=== PATIENT | female | born 1990 | race African-American/Black ===

== ENCOUNTER 2018-06-16 04:14 | Emergency (ER) | payer OTHER ==
[~2018-06-16] VITALS: Ht 162.6 cm; Wt 54.4 kg
[2018-06-16 04:15] VITALS: BP 138/60
--- NOTE | 2018-06-16 04:24 | NUR ---
ED Nurse Note: Patient KIM RA 67 from home c/o lower abdominal pain, heavy vaginal bleeding (10 pads), and vomiting since 2100 last night. Patient was at [facility] for a miscarriage on Sunday. Patient was 11 weeks . AO4. NAD. VSS. Family at bedside.
--- NOTE | 2018-06-16 04:36 | Emergency Room Report ---
History of Present Illness General Chief Complaint: Complications Source: Patient Present Illness HPI Is a 28-year-old female 1, para 0, 11 weeks . She presents with chief point of vaginal bleeding and cramping. She has some spotting was seen at [facility] 2 days ago. She was told that she had a miscarriage. Said that her hCG level was very low. She did not know what the ultrasound showed but was told that she had a miscarriage. He does not remember if there was demise. She was told to follow-up with her [employer]. She has an appointment 11 days from now. Tonight she started having more cramping and vaginal bleeding. Passing clots. Pain is sharp and crampy. 8 out of 10. Nothing made it better. Nothing made it worse. Denies any other complaint. No trauma. Allergies: Coded Allergies: No Known Allergies (Unverified , 06/16/18) Patient History Past Medical History: see triage record, old chart reviewed Past Surgical History: none Pertinent Family History: none Social History: Denies: smoking Last Menstrual Period: 03/23/2018 Now: No - miscarriage at 11 weeks on 06/14/2018 : 1 Para: 0 Immunizations: other Reviewed Nursing Documentation: PMH: Agreed; PSxH: Agreed Nursing Documentation-PMH Past Medical History: No Stated History Review of Systems Eye: Denies: eye pain, blurred vision ENT: Denies: ear pain, nose congestion, throat swelling Respiratory: Denies: cough, shortness of breath Cardiovascular: Denies: chest pain, palpitations Gastrointestinal: Denies: abdominal pain, diarrhea, nausea, vomiting Genitourinary: Reports: vag bleed/dc Musculoskeletal: Denies: back pain, joint pain Skin: Denies: rash Neurological: Denies: headache, numbness Endocrine: Denies: increased thirst, increased urine Hematologic/Lymphatic: Denies: easy bruising All Other Systems: negative except mentioned in HPI Physical Exam Vital Signs Date Time Temp Pulse Resp B/P (MAP) Pulse Ox O2 Delivery O2 Flow Rate FiO2 06/16/18 04:14 97.3 80 16 138/60 100 Room Air vitals normal Sp02 EP Interpretation: reviewed, normal General Appearance: well appearing, no apparent distress, alert Head: normocephalic, atraumatic Eyes: bilateral eye PERRL, bilateral eye EOMI ENT: hearing grossly normal, normal pharynx Neck: full range of motion, supple, no meningismus Respiratory: chest non-tender, lungs clear, normal breath sounds Cardiovascular #1: regular rate, rhythm, no murmur Gastrointestinal: normal bowel sounds, non tender, no mass, no organomegaly, no bruit, non-distended Genitourinary: other - Pelvic exam done with female nurses hair mixer. External exam normal. Internal exam show clots. There was amniotic fluid sac at the os. I remove this without any difficulty. There were tissues at the os. I removed this in the os start closing up. Uterus not enlarged. Musculoskeletal: back normal, gait/station normal, normal range of motion Neurologic: alert, oriented x3 Psychiatric: mood/affect normal Skin: warm/dry Medical Decision Making Diagnostic Impression: Primary Impression: Complete Additional Impression: Vasovagal syncope ER Course Patient presents with spontaneous . Bleeding significantly improve after removing tissue. Prior to this she was vomiting and lean over the stretcher. She had a syncopal episode and hit her face. There was small abrasion to the bridge and nose and the upper lip. Nothing to be sutured. Patient had a completed spontaneous here. She had a vasovagal syncopal episode with minor head injury. Mechanism is mild. I see no need for CT head. She felt better now after IV fluid and evacuation of tissue from the os. Bleeding slowed down significantly. Lab Results Impression labs unremarkable Last Vital Signs Date Time Temp Pulse Resp B/P (MAP) Pulse Ox O2 Delivery O2 Flow Rate FiO2 06/16/18 04:14 97.3 80 16 138/60 100 Room Air Status: improved Disposition: HOME, SELF-CARE Condition: Stable Scripts Ibuprofen* (MOTRIN*) 600 Mg Tablet 600 MG ORAL THREE TIMES A DAY, #30 TAB 0 Refills Prov: Ortega Baxter MD 06/16/18 Additional Instructions: Increase fluid. Take Motrin every 6 hours for the next few days. Follow-up with your doctor within a week. Return for worsening symptom or increasing bleeding or fever. Ortega Baxter MD Jun 16, 2018 04:35
[2018-06-16] MEDS ORDERED: Ketorolac 30mg Inj IV ONE (04:45)
--- NOTE | 2018-06-16 04:50 | NUR ---
ED Nurse Note: Blood collected; sent down to lab
[2018-06-16 05:20] VITALS: BP 91/57
--- NOTE | 2018-06-16 05:20 | NUR ---
ED Nurse Note: Received patient from ZHANG Drummond. Mild abrasion on nose and upper lip noted. Assisted ERMD at bedside for pelvic exam in OB room. Transferred patient back to monitored bed. AO4. NAD. Blood pressure 91/57. Family at bedside. Bed at lowest position; side rails raised. Will continue to monitor.
[2018-06-16 05:27] LABS: BASOPHILS % (AUTO) 0.7 % (0.0-2.0); EOSINOPHILS % (AUTO) 1.1 % (0.0-3.0); HEMATOCRIT 35.4 % (37.0-47.0); HEMOGLOBIN 11.6 G/DL (12.0-16.0); LYMPHOCYTES % (AUTO) 12.1 % (20.0-45.0); MEAN CORPUSCULAR VOLUME 96 FL (80-99); MONOCYTES % (AUTO) 4.4 % (1.0-10.0); NEUTROPHILS % (AUTO) 81.8 % (45.0-75.0); PLATELET COUNT 199 K/UL (150-450); RED BLOOD COUNT 3.67 M/UL (4.20-5.40); WHITE BLOOD COUNT 15.4 K/UL (4.8-10.8)
[2018-06-16 05:34] LABS: ANION GAP 13 mmol/L (5-15); BLOOD UREA NITROGEN 6 mg/dL (7-18); CALCIUM 8.6 MG/DL (8.5-10.1); CARBON DIOXIDE 23 MMOL/L (21-32); CHLORIDE 101 MMOL/L (98-107); CREATININE 0.7 MG/DL (0.55-1.30); POTASSIUM 3.3 MMOL/L (3.5-5.1); SODIUM 137 MMOL/L (136-145)
[2018-06-16 06:00] VITALS: BP 104/59
[2018-06-16] MEDS ORDERED: Acetaminophen 500mg (ES) tab ORAL ONE (06:30)
[2018-06-16] MEDS ORDERED: IBUPROFEN600 MG ORAL (06:35)
--- NOTE | 2018-06-16 06:48 | NUR ---
ED Nurse Note: Ambulated patient around unit. pt able to ambulate steady. Denies nausea or dizziness.
[2018-06-16 06:50] VITALS: BP 103/61
--- NOTE | 2018-06-16 06:50 | NUR ---
ED Nurse Note: Patient cleared for discharge per ERMD. AO4 NAD. VSS. Accompanied by family member. Patient given prescriptions and discharge instructions; verbalized understanding. IV & ID band removed. Patient ambulated steady with all personal belongings.
[2018-06-16] MEDS ORDERED: NKM (07:21)
== END 2018-06-16 06:50 | disposition home or self-care (01) ==
LOC: EDBD 04:14 → EMR 04:44
DX: O03.9 Complete or unspecified spontaneous abortion without complication (principal); R55 Syncope and collapse
CPT/HCPCS: 36415; 80048; 84702; 85025; 96361; 96374; 96375; 99284; J1885; J2405

== ENCOUNTER 2018-06-16 07:09 | Inpatient (IN) | payer OTHER ==
[~2018-06-16] VITALS: Ht 162.6 cm; Wt 54.4 kg
[2018-06-16] VITALS (7 sets, daily range): BP systolic 88–105; BP diastolic 45–56
[~2018-06-16 07:09] MED LIST: IBUPROFEN600 MG ORAL
[2018-06-16] MEDS ORDERED: NKM (07:21)
--- NOTE | 2018-06-16 07:26 | NUR ---
ED Nurse Note: pt. was recently discharged from ER, came back due to feeling weak. Denies feeling dizzy. denies pain. Pt was attached to cardiac rehabilitation program director and was gievn juice. at the bedside
--- NOTE | 2018-06-16 07:43 | Emergency Room Report ---
History of Present Illness General Chief Complaint: Generalized Weakness Source: Patient, Significant Other Present Illness HPI Patient had been dispositioned and in the route to the waiting room and going to the car patient reported feeling lightheaded Near syncopal feelings And was brought back to the emergency room Previously patient did have a syncopal episode however not with this presentation Patient feels generally weak denies any focal weakness denies any chest pain or shortness of breath Patient appears to have had a completion of her miscarriage from previous report Denies any abdominal pain at this time Allergies: Coded Allergies: No Known Allergies (Unverified , 06/16/18) Patient History Past Medical History: see triage record Pertinent Family History: none Now: No Reviewed Nursing Documentation: PMH: Agreed; PSxH: Agreed Nursing Documentation-PMH Past Medical History: No History, Except For Review of Systems All Other Systems: negative except mentioned in HPI Physical Exam Vital Signs Date Time Temp Pulse Resp B/P (MAP) Pulse Ox O2 Delivery O2 Flow Rate FiO2 06/16/18 07:10 95 14 Room Air 06/16/18 07:10 97.9 88/55 100 Sp02 EP Interpretation: reviewed, normal General Appearance: well appearing, no apparent distress Head: normocephalic, atraumatic Eyes: bilateral eye PERRL, bilateral eye EOMI ENT: hearing grossly normal, normal pharynx, TMs + canals normal, uvula midline Neck: full range of motion, supple, no meningismus, no bony tend Respiratory: lungs clear, normal breath sounds, no rhonchi, no respiratory distress, no retraction, no accessory muscle use Cardiovascular #1: normal peripheral pulses, regular rate, rhythm, no edema, no gallop, no JVD, no murmur Gastrointestinal: normal bowel sounds, non tender, soft, no mass, no organomegaly, non-distended, no guarding, no hernia, no pulsatile mass, no rebound Genitourinary: no CVA tenderness Musculoskeletal: normal inspection Neurologic: oriented x3, responsive, grocery worker III-XII nml as tested, motor strength/ tone normal, sensory intact Psychiatric: mood/affect normal Skin: other - Mild pallor Lymphatic: normal inspection, no adenopathy Procedures Critical Care Time Critical Care Time 40 minutes for multiple re-evaluations, several episodes of lightheadedness and possible loss of consciousness, continued to be evaluations discussion with specialist not including any procedural time Medical Decision Making Diagnostic Impression: Primary Impression: Complete miscarriage Additional Impressions: Near syncope Vaginal bleeding Symptomatic anemia ER Course Given the patient's recent presentation and the events that occurred ultrasound was obtained repeat blood work patient's hemoglobin is somewhat lower There is some delusional consideration with this Patient was taken to ultrasound and was reported to have another near syncopal episode while she was going to the restroom Currently the patient continues to do significantly better However given the repeat presentation and the near syncopal episodes that have occurred Case was discussed with gynecology and patient admitted for further care Labs Test 06/16/18 07:36 06/16/18 09:47 White Blood Count 16.5 K/UL (4.8-10.8) Red Blood Count 2.73 M/UL (4.20-5.40) Hemoglobin 8.9 G/DL (12.0-16.0) Hematocrit 26.7 % (37.0-47.0) Mean Corpuscular Volume 98 FL (80-99) Mean Corpuscular Hemoglobin 32.6 PG (27.0-31.0) Mean Corpuscular Hemoglobin Concent 33.4 G/DL (32.0-36.0) Red Cell Distribution Width 12.1 % (11.6-14.8) Platelet Count 167 K/UL (150-450) Mean Platelet Volume 7.2 FL (6.5-10.1) Neutrophils (%) (Auto) % (45.0-75.0) Lymphocytes (%) (Auto) % (20.0-45.0) Monocytes (%) (Auto) % (1.0-10.0) Eosinophils (%) (Auto) % (0.0-3.0) Basophils (%) (Auto) % (0.0-2.0) Differential Total Cells Counted 100 Neutrophils % (Manual) 96 % (45-75) Lymphocytes % (Manual) 3 % (20-45) Monocytes % (Manual) 1 % (1-10) Eosinophils % (Manual) 0 % (0-3) Basophils % (Manual) 0 % (0-2) Band Neutrophils 0 % (0-8) Platelet Estimate Adequate Platelet Morphology Normal Hypochromasia 1+ Urine Color Pale yellow Urine Appearance Clear Urine pH 7 (4.5-8.0) Urine Specific [place] 1.005 (1.005-1.035) Urine Protein Negative (NEGATIVE) Urine Glucose (UA) Negative (NEGATIVE) Urine Ketones Negative (NEGATIVE) Urine Blood Negative (NEGATIVE) Urine Nitrite Negative (NEGATIVE) Urine Bilirubin Negative (NEGATIVE) Urine Urobilinogen Normal MG/DL (0.0-1.0) Urine Leukocyte Esterase Negative (NEGATIVE) Rhythm Strip Diag. Results EP Interpretation: yes Rate: 70 Rhythm: NSR, no PVC's, no ectopy CT/MRI/US Diagnostic Results CT/MRI/US Diagnostic Results : Impression pelvic ultrasound:IMPRESSION: There is trace fluid in the endometrium. An ill-defined hypoechoic area adjacent to the endometrium. No vascularity to suggest RPOC. Last Vital Signs Date Time Temp Pulse Resp B/P (MAP) Pulse Ox O2 Delivery O2 Flow Rate FiO2 06/16/18 07:10 97.9 95 14 88/55 100 Room Air Status: improved Disposition: ADMITTED INPATIENT Condition: Serious Referrals: NON PHYSICIAN (PCP) Cisco Baez DO Jun 16, 2018 07:43
[2018-06-16 07:53] LABS: HEMATOCRIT 26.7 % (37.0-47.0); HEMOGLOBIN 8.9 G/DL (12.0-16.0); MEAN CORPUSCULAR VOLUME 98 FL (80-99); PLATELET COUNT 167 K/UL (150-450); RED BLOOD COUNT 2.73 M/UL (4.20-5.40); RED CELL DISTRIBUTION WIDTH 12.1 % (11.6-14.8); WHITE BLOOD COUNT 16.5 K/UL (4.8-10.8)
--- NOTE | 2018-06-16 08:05 | NUR ---
ED Nurse Note: pt taken to US
--- NOTE | 2018-06-16 08:30 | NUR ---
ED Nurse Note: COLOR SPRAYER was called in US. Went down to assess the pt. Upon arriving COLOR SPRAYER was there. Pt. was verbally responsive and oriented. Pt. stated she feels weak. Asked RT to check the O2 sat. 100% RA
--- NOTE | 2018-06-16 08:44 | NUR ---
ED Nurse Note: Pt. came back from US
--- NOTE | 2018-06-16 08:58 | NUR ---
ED Nurse Note: received report from ZHANG Bagley and assumed care, pt came back from ultrasound, on cardiac nurse specialist, pt resting in bed comfortably, vss, NSR, pt currently denies nausea or any pain. Pt spouse member at the bedside, will cont monitor. pt advised to notify staff if needed assist.
--- NOTE | 2018-06-16 09:15 | Diagnostic Imaging Report ---
EXAM: US Pelvis Complete, Transabdominal CLINICAL HISTORY: Miscarriage 3 days ago TECHNIQUE: Real-time transabdominal pelvic ultrasound (complete) with image documentation. COMPARISON: No relevant prior studies available. FINDINGS: Uterus/cervix: Uterus measures 7.5 x 4.1 x 4.3 cm. Endometrial stripe thickness within normal limits. There is trace fluid in the endometrium. An ill-defined hypoechoic area adjacent to the endometrium. No vascularity to suggest RPOC. Right ovary: Right ovary measures 2.3 x 3.0 x 1.0 cm. Normal blood flow. Left ovary: Left ovary measures 1.6 x 1.7 x 1.2 cm. Normal blood flow. Free fluid: No free fluid. Bladder: Unremarkable as visualized. Wall is normal thickness for degree of distention. IMPRESSION: There is trace fluid in the endometrium. An ill-defined hypoechoic area adjacent to the endometrium. No vascularity to suggest RPOC.
--- NOTE | 2018-06-16 09:45 | NUR ---
ED Nurse Note: urine specimen sent.
[2018-06-16 10:06] LABS: APPEARANCE,URINE CLEAR; BILIRUBIN, URINE NEGATIVE (NEGATIVE); COLOR,URINE PALE YELLOW; GLUCOSE, URINE (UA) NEGATIVE (NEGATIVE); KETONES,URINE NEGATIVE (NEGATIVE); LEUKOCYTE ESTERASE ,URINE NEGATIVE (NEGATIVE); NITRITE,URINE NEGATIVE (NEGATIVE); PH,URINE 7 (4.5-8.0); PROTEIN,URINE NEGATIVE (NEGATIVE); UROBILINOGEN,URINE NORMAL MG/DL (0.0-1.0)
--- NOTE | 2018-06-16 10:10 | NUR ---
ED Nurse Note: pt assisted using bedpan and cleaned with minimal assist.
--- NOTE | 2018-06-16 11:21 | NUR ---
ED Nurse Note: report given to ZHANG Peck from [facility].
--- NOTE | 2018-06-16 12:35 | NUR ---
ED Nurse Note: pt transferred to [facility], all belongings sent, pt transfer with RN x2, vss,r michael even and unlabored, airway intact, no changes in neuro status. spouse member at bedside.
--- NOTE | 2018-06-16 13:00 | NUR ---
NURSE NOTES: RECEIVED PHONE REPORT FROM MARGARETH MART RN OF ED DPT.PT IS 28 YRS OLD WITH DX OF MISCAARIAGE,NEAR SYNCOPE.PT AWAKE ALERT AND ORIENTED X4 AND AT BED SIDE AT ALL THE TIME. AWAITING FOR PT CAME TO THE UNIT.
--- NOTE | 2018-06-16 13:04 | NUR ---
PT ARRIVED TO THE UNIT ESCORTED BY BRITTNY HOLCOMB FROM ED DPT.PT AWAKE AND ORIENTED X4 DENIES ABD PAIN OR ANY DISCOMFORT AT THIS TIME.HR 72 ,NSR NOTED ON MS SQL DEVELOPER.FULL BODY ASSESSMENT COMPLETED,NO EVIDENCE OF VAGINAL BLEEDING NOTED AT THIS TIME.H.L ON RT HAND G# 20 INFILTRATED.NO MEDICAL HX .PT AT BED SIDE SEEMS VERY SUPPORTIVE.PLACED A TELEPHONE CALL TO AUDREY BOATENG AND MADE AWARE AND NOTIFIED REGARDING NEW ADMISSION,ENDORSED LAB,S,V/S AND ABD U.S REPORT . STATING THAT IS ON HIS WAY TO SEE THE PT.M.D CAME TO SEE THE PATIENT.NO ACUTE DISTRESS NOTED AT THIS TIME.WILL CONT TO MONITOR.
--- NOTE | 2018-06-16 13:36 | NUR ---
ED Nurse Note: d/c assessment done at 1235.
--- NOTE | 2018-06-16 16:00 | NUR ---
NURSE NOTES:PT ENCOURAGED TO EAT AND DRINK PLENTY FLUIDS 2000ML IN 6 HRS ,ALSO TO GET OUT OFF BED VERY SLOWLY TO PREVENT DIZZINESS AND HYPOTENSION,PT VERBALIZED UNDERSTOOD.ASSISTED PT TO USE BED SIDE COMMODE ,WHEN HR INCREASE TO 140,S PT DENIES CP.PT VOIDING LARGE AMOUNT OF CLEAR URINE COLOR,NO EVIDENCE OF VAGINAL BLEEDING.PT ASSISTED TO BED AND MADE COMFORTABLE POSSIBLE.WILL CONT TO MONITOR.
--- NOTE | 2018-06-16 18:00 | NUR ---
NURSE NOTES: WHEN PT IS USSING BED SIDE COMMODE HR INCREASED TO 165,PT STATING OF FILING LIKE PALPITATION BUT NO CHEST PAIN.PLACED A TELEPHONE CALL TO DR MANZANO AND MADE AWARE AND NOTIFIED REGARDING PT HR INCREASE TO 150,S TO 165 .Gay SPOKE WITH PT IN THE PHONE AND EXPLAINED TO HER THAT WILL STAYED IN THE HOSPITAL TONIGHT.PT AGREE TO STAY WELL HER .WILL CONT TO MONITOR.
--- NOTE | 2018-06-16 19:40 | NUR ---
NURSE NOTES: Received Pt is resting on the bed and awake and alert. Family; stay at bedside. On tele monitor with SR and HR: 84's. On room air and no respiratory distress noted. IV site intact and no sign of infiltration noted. Encouraged oral hydration. Placed fall precaution. Will continue to care plan. Pt will transfer to Tele and awaiting room. Informed to Pt and family and verbally understanding.
--- NOTE | 2018-06-16 19:40 | NUR ---
HAND-OFF: Report given to .ALYCE HOLCOMB.
--- NOTE | 2018-06-16 20:30 | NUR ---
TRANSFER TO FLOOR: Patient transferred to Tele room 202-2. Report given to ZHANG Julien. Belongings given to ZHANG Julien. Pt is awake and alert. No sign of acute distress noted. IV site intact and no sign of infiltration noted.
--- NOTE | 2018-06-16 20:45 | NUR ---
NURSE NOTES: RECEIVED PATIENT FROM [facility]. PATIENT ALERT AND ORIENTED X4, SR ON A MONITOR, DENIES PAIN AT THIS TIME. NO ACUTE VAGINAL BLEEDING NOTED, JUST LIGHT SPOTTING ON SANITARY PAD. ENCOURAGED TO DRINK A LOT OF FLUIDS. INSTRUCTED PATIENT TO CALL FOR ASSISTANCE AND NOT TO GET OUT OF BED WITHOUT HELP. PATIENT AND VERBALIZED UNDERSTANDING. BEDSIDE TABLE, COMMODE AND CALL LIGHT WITHIN REACH, BED IN LOW POSITION.
[2018-06-17] VITALS: BP 93/50
[2018-06-17 04:00] VITALS: BP 113/54
--- NOTE | 2018-06-17 07:12 | NUR ---
HAND-OFF: Report given to Sandy GARCÍA RN. PATIENT RESTING IN BED, NO SIGNS OF DISTRESS NOTED. AT BEDSIDE.
[2018-06-17 08:00] VITALS: BP 120/54
--- NOTE | 2018-06-17 08:06 | NUR ---
NURSE NOTES: received patient report from anuj pfeiffer. patient is on bed awake. no acute distress noted. AOX4. SR on the monitor. bed is low and locked. patient is noted to be ambulatory steady. will continue plan of care.
[2018-06-17 12:00] VITALS: BP 98/46
--- NOTE | 2018-06-17 12:34 | NUR ---
NURSE NOTES: attempted to downgrade patient to MS but per dr gibbs, keep the patient in tele because of HR 138.patient is stable, asymptomatic.
--- NOTE | 2018-06-19 13:56 | Discharge Summary ---
Discharge Summary Discharge Summary _ DATE OF ADMISSION:06/16/18 DATE OF DISCHARGE: 06/17/18 DISCHARGED BY: Dr. Saez REASON FOR ADMISSION: 28 years old female , 1, para 0, 11 weeks , presented with complaint of vaginal bleeding and cramping. Patient had some vaginal spotting and was seen at [facility] days ago. Patient was told that she had miscarriage. She was told that her hCG level was very low. She did not remember if there was any demise. Patient was told to follow-up with her AUTO ROLLER. Patient already had a schedule appointment with AUTO ROLLER. However patient reported having more cramping and vaginal bleeding. Patient was passing clots. Pain was described as sharp and crampy , 8 out of 10 on a scale 1-10. Upon evaluation vital signs wee stable. HCG 7134. Potassium 3.3 WBC 15.4 , hemoglobin 11.9, hematocrit 35.4 . Patient presented with complete spontaneous . She had a vasovagal syncopal episode with minor head injury with small abrasion to the bridge of her nose and upper lip, nothing to suture. No need for CT of the head , as per emergency room physician. IV fluids provided. issue was evacuated from the os. Bleeding controlled significantly. Patient was recommended to increase fluid intake , take Motrin as needed for the next few days , and follow-up with her AUTO ROLLER within a week. Patient was instructed to return for worsening symptoms or increased bleeding . Patient was subsequently discharged . However patient presented to the emergency room again due to feeling of lightheadedness and near syncopal episode , while going from the waiting room to the car. Patient felt weak , but denied any focal weakness ,chest pain or shortness of breath. She denied abdominal pain . Vital signs revealed blood pressure 88/55. Hemoglobin was at that time 8.9 and hematocrit 26.7 . Transvaginal ultrasound revealed trace fluid in the endometrium. Ill-defined hypoechoic area adjacent to the endometrium , no vascularity to suggest PROC. Urinalysis revealed no evidence of UTI. Patient was admitted to telemetry floor. HOSPITAL COURSE: Patient admitted to telemetry floor. Hemodynamic status was closely monitored . Patient was on the IV fluids. Antiemetics were on board as needed. Patient was closely monitored for signs of bleeding. No acute vaginal bleeding, some light spotting only. Patient was encouraged and able to drink liberal amounts of fluid. Patient remained stable, no signs of acute distress. Blood pressure was closely monitored, stable. No evidence of arrhythmia on telemetry. Patient was stable for discharge home. Due to rapid and unexpected improvement in patient condition , patient was discharged in 1 day Outpatient follow-up with AUTO ROLLER within 1 week . FINAL DIAGNOSES: Complete spontaneous miscarriage Near syncopal episode ( likely due to low blood pressure and acute blood loss secondary to complete miscarriage) Vaginal bleeding Symptomatic anemia DISCHARGE MEDICATIONS: See Medication Reconciliation list. DISCHARGE INSTRUCTIONS: Patient was discharged home . Follow up with your AUTO ROLLER in one week. I have been assigned to dictate discharge summary for this account. I was not involved in the patient's management. Nicole Rogers NP Jun 19, 2018 13:56
== END 2018-06-17 16:00 | disposition home or self-care (01) | DRG 779 ==
LOC: EMR 07:27 → EDBEDREQ 09:49 → 2W 11:11 → 2E 20:43
DX: O03.9 Complete or unspecified spontaneous abortion without complication (principal); D62 Acute posthemorrhagic anemia
CPT/HCPCS: 36415; 76830; 76856; 81003; 85007; 85025; 93005; 99291